=== PATIENT | female | born 1980 | race Caucasian/White ===

== ENCOUNTER 2017-03-31 12:29 | Emergency (ER) | payer SELFPAY ==
[~2017-03-31] VITALS: Ht 162.6 cm; Wt 100.9 kg
[2017-03-31] MEDS ORDERED: KETOROLAC 60 MG/2 ML VIAL (J1885) IM ONE (14:15)
--- NOTE | 2017-03-31 15:14 | REP ---
Clinical: Pain and swelling . Technique: Feldman scale and color Doppler evaluation using linear high frequency transducer. Findings: Ultrasound examination of the left upper extremity deep venous structures including the jugular, subclavian, axillary, brachial, basilic, and cephalic veins demonstrates normal compressibility flow and wave patterns in response to respiration and augmentation. There is no evidence for deep venous thrombosis. Site of maximal pain in the proximal forearm, a complex subcutaneous collection measuring roughly 6 x 3 x 5 mm may represent small hematoma. Impression: 1. No evidence for deep venous thrombosis. 2. Small complex collection in the subcutaneous tissues in the proximal forearm may represent small hematoma and should be correlated with mechanism of injury. Signed by Elton Silverio MD 03/31/2017 03:06 P
[2017-03-31] MEDS ORDERED: NAPR500T PO (15:32)
[2017-03-31] MEDS ORDERED: CLEO300C2 PO (15:32)
[2017-03-31 15:38] VITALS: BP 128/69
[2017-08-04] MEDS ORDERED: IBUP-1114 PO (19:31)
[2017-08-04] MEDS ORDERED: LIDO1SOL7 MT (20:32)
== END 2017-03-31 15:52 | disposition home or self-care (01) ==
LOC: M ED 12:29
DX: S49.92XA Unspecified injury of left shoulder and upper arm, initial encounter (principal); X58.XXXA Exposure to other specified factors, initial encounter; Y92.89 Other specified places as the place of occurrence of the external cause; Y93.89 Activity, other specified; Y99.8 Other external cause status

== ENCOUNTER 2017-07-27 20:49 | Emergency (ER) | payer SELFPAY ==
[~2017-07-27] VITALS: Ht 162.6 cm; Wt 98.2 kg
[2017-07-27 20:49] VITALS: BP 128/81
[~2017-07-27 20:49] MED LIST: CLEO300C2 PO; NAPR500T PO
[2017-07-27] MEDS ORDERED: DIFL200T PO (21:33)
[2017-07-27] MEDS ORDERED: FLUCONAZOLE 100 MG TAB PO ONE (21:45)
[2017-08-04] MEDS ORDERED: IBUP-1114 PO (19:31)
[2017-08-04] MEDS ORDERED: LIDO1SOL7 MT (20:32)
== END 2017-07-27 21:42 | disposition home or self-care (01) ==
LOC: M ED 20:49
DX: L72.9 Follicular cyst of the skin and subcutaneous tissue, unspecified (principal); B37.3 Candidiasis of vulva and vagina; J30.89 Other allergic rhinitis

== ENCOUNTER 2017-11-27 21:46 | Emergency (ER) | payer SELFPAY ==
[2017-11-27 22:12] LABS: AMORPHOUS SEDIMENT RFX MODERATE (NEGATIVE); KETONE, URINE AUTO RFX NEGATIVE (NEGATIVE); LEUKOCYTE ESTERASE UR AUTO RFX NEGATIVE (NEGATIVE); NITRITE, URINE AUTO RFX NEGATIVE (NEGATIVE); RBC, URINE AUTO RFX 2 /HPF (0-3); SPECIFIC GRAVITY UR AUTO RFX 1.017 (1.002-1.035); SQUAM EPITHELIAL CELL UR AURFX 0 /HPF (0-6); WBC, URINE AUTO RFX 1 /HPF (0-3)
[2017-11-27 22:38] LABS: CONTROL LINE UCG INT CTR LINE PRESENT; URINE PREG TEST NEGATIVE (NEGATIVE)
[2017-11-27] MEDS: ACETAMINOPHEN 325 MG TAB PO (23:31)
[2017-11-27] MEDS: ONDANSETRON 4 MG ORAL DISINTEGRATING TAB (S0181) PO (23:31)
[2017-11-28 00:25] LABS: INFLUENZA A AMPLIFICATION NEGATIVE (NEGATIVE); INFLUENZA B AMPLIFICATION POSITIVE (NEGATIVE)
== END 2017-11-28 00:42 | disposition home or self-care (01) ==
LOC: M ED 11-28 00:42
DX: J10.1 Influenza due to other identified influenza virus with other respiratory manifestations (principal); J30.2 Other seasonal allergic rhinitis; Z87.442 Personal history of urinary calculi
CPT/HCPCS: 84703

== ENCOUNTER 2018-05-18 21:23 | Emergency (ER) | payer OTHER, SELFPAY | END 2018-05-18 21:38 | disposition left against medical advice (07) | LOC: M ED 21:23 | DX: J00 Acute nasopharyngitis [common cold] (principal); Z53.21 Procedure and treatment not carried out due to patient leaving prior to being seen by health care provider ==

== ENCOUNTER 2018-07-16 18:01 | Emergency (ER) | payer OTHER | END 2018-07-16 21:14 | disposition left against medical advice (07) | LOC: M ED 18:01 | DX: Z53.29 Procedure and treatment not carried out because of patient's decision for other reasons (principal) ==

== ENCOUNTER 2018-09-23 12:46 | Emergency (ER) | payer OTHER ==
[~2018-09-23] VITALS: Ht 162.6 cm; Wt 95.9 kg
[~2018-09-23 12:46] MED LIST changes: +DIFL200T PO; +IBUP-1114 PO; +LIDO1SOL7 MT; +NAPR-49 PO; -NAPR500T PO
[2018-09-23 12:47] VITALS: BP 122/78
== END 2018-09-23 14:00 | disposition home or self-care (01) ==
LOC: M ED 12:46
DX: J32.9 Chronic sinusitis, unspecified (principal)

== ENCOUNTER 2018-09-28 13:32 | Emergency (ER) | payer OTHER ==
[~2018-09-28] VITALS: Ht 162.6 cm; Wt 95.9 kg
[~2018-09-28 13:32] MED LIST changes: -NAPR-49 PO; +NAPR-50 PO
[2018-09-28] MEDS ORDERED: NS 1,000 ML IV SCH (14:01)
[2018-09-28] MEDS ORDERED: IPRATROPIUM 0.5MG/ALBUTEROL 2.5MG INH SOL UD 3ML (DUONEB)(J7620) NEB ONE (14:15)
[2018-09-28] MEDS ORDERED: ASPIRIN 81 MG CHEW TABLET PO ONE (14:15)
[2018-09-28 14:31] LABS: VENOUS BASE EXCESS 0.5 (-2.0-2.0); VENOUS HCO3 26.9 MEQ/L (23.0-27.0); VENOUS O2 SATURATION 65.8 % (60.0-80.0); VENOUS PARTIAL PRESSURE CO2 51.2 mmHg (38.0-50.0); VENOUS PARTIAL PRESSURE O2 37.1 mmHg (30.0-50.0); VENOUS PH 7.338 UNITS (7.330-7.430); VENOUS STANDARD HCO3 24.3 MEQ/L; VENOUS TOTAL CO2 28.5 MEQ/L (24.0-28.0)
[2018-09-28 14:38] LABS: BASO % 0.5 % (0.0-1.0); EOS # 0.1 10^3/uL (0.0-0.50); EOS % 2.9 % (0.0-3.0); HEMATOCRIT 34.6 % (36.0-47.0); HEMOGLOBIN 10.5 g/dl (12.0-15.5); LYMPH # 0.9 10^3/uL (1.5-4.5); LYMPH % 22.2 % (24.0-44.0); MEAN CORPUSCULAR HEMOGLOBIN 24.1 pg (27.0-33.0); MEAN CORPUSCULAR HGB CONC 30.3 g/dl (32.0-36.5); MEAN CORPUSCULAR VOLUME 79.5 fl (80.0-96.0); MONO # 0.5 10^3/uL (0.0-0.8); MONO % 11.2 % (0.0-5.0); NEUTROPHILS # 2.6 10^3/uL (1.8-7.7); PLATELET COUNT, AUTOMATED 244 10^3/uL (150-450); RED BLOOD COUNT 4.35 10^6/uL (4.00-5.40); WHITE BLOOD COUNT 4.1 10^3/uL (4.0-10.0)
[2018-09-28 14:39] LABS: INR 0.98; PROTHROMBIN TIME 13.1 SECONDS (12.1-14.4)
--- NOTE | 2018-09-28 14:55 | REP ---
CHEST X-RAY: TWO VIEWS. HISTORY: Dyspnea and cough. COMPARISON STUDY: No comparison. FINDINGS: There is a small opacity in the right upper perihilar region consistent with infiltrate. Lung alonso are otherwise clear. Pleural angles are sharp. Heart size is normal. Pulmonary vasculature is not increased. IMPRESSION: Small infiltrate, right upper lobe consistent with pneumonia. Otherwise negative chest x-ray. Electronically Signed by Bryan Pizano MD 09/28/2018 04:17 P
[2018-09-28 15:00] LABS: BLOOD UREA NITROGEN 13 MG/DL (7-18); CALCIUM LEVEL 8.6 MG/DL (8.5-10.1); CARBON DIOXIDE LEVEL 27 MEQ/L (21-32); CHLORIDE LEVEL 107 MEQ/L (98-107); CK-MB VALUE MASS < 1.0 NG/ML (<3.6); CPK CREATINE PHOSPHOKINASE 43 U/L (26-192); CREATININE FOR GFR 0.64 MG/DL (0.55-1.30); GLOMERULAR FILTRATION RATE > 60.0 (>60); GLUCOSE, FASTING 85 MG/DL (70-100); MB/CK RELATIVE INDEX 2.33 (< OR =4); POTASSIUM SERUM 3.7 MEQ/L (3.5-5.1); SODIUM LEVEL 140 MEQ/L (136-145); TROPONIN I < 0.02 NG/ML (< 0.10)
[2018-09-28] MEDS ORDERED: PROAAER10 INH (15:40)
[2018-09-28] MEDS ORDERED: DIFL150T PO (15:40)
[2018-09-28] MEDS ORDERED: AVEL1TAB3 PO (15:40)
[2018-09-28 16:30] VITALS: BP 106/66
[2018-09-28 16:39] LABS: INFLUENZA A AMPLIFICATION POSITIVE (NEGATIVE); INFLUENZA B AMPLIFICATION NEGATIVE (NEGATIVE)
--- NOTE | 2018-09-28 18:40 | ECGEPIP ---
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
== END 2018-09-28 16:32 | disposition home or self-care (01) ==
LOC: M ED 13:32
DX: J18.9 Pneumonia, unspecified organism (principal)

== ENCOUNTER 2018-12-03 12:08 | Emergency (ER) | payer OTHER ==
[~2018-12-03] VITALS: Ht 162.6 cm; Wt 99.1 kg
[~2018-12-03 12:08] MED LIST changes: +AVEL1TAB3 PO; +DIFL150T PO; +PROAAER10 INH
--- NOTE | 2018-12-03 12:40 | REP ---
Left elbow series: Four views. History: Injury in a fall. Findings: Four views of the left elbow demonstrate normal bones, joints and soft tissues. No fracture or subluxation is seen. No evidence of joint effusion. Impression: Negative radiographs of the left elbow. Electronically Signed by Bryan Pizano MD 12/03/2018 12:32 P
[2018-12-03 13:40] VITALS: BP 130/76
== END 2018-12-03 13:43 | disposition home or self-care (01) ==
LOC: M ED 12:08
DX: S50.02XA Contusion of left elbow, initial encounter (principal); W19.XXXA Unspecified fall, initial encounter; Y92.89 Other specified places as the place of occurrence of the external cause; F32.9 Major depressive disorder, single episode, unspecified; M54.9 Dorsalgia, unspecified; J30.1 Allergic rhinitis due to pollen

== ENCOUNTER 2019-01-30 19:36 | Emergency (ER) | payer OTHER ==
[~2019-01-30] VITALS: Ht 162.6 cm; Wt 100.7 kg
[~2019-01-30 19:36] MED LIST changes: -LIDO1SOL7 MT; +LIDO1SOL8 MT; -NAPR-50 PO; +NAPR-837 PO
[2019-01-30 20:38] LABS: BASO # 0.1 10^3/uL (0.0-0.2); BASO % 0.6 % (0.0-1.0); EOS # 0.3 10^3/uL (0.0-0.50); EOS % 3.3 % (0.0-3.0); HEMATOCRIT 36.8 % (36.0-47.0); HEMOGLOBIN 11.2 g/dl (12.0-15.5); LYMPH # 2.4 10^3/uL (1.5-4.5); MEAN CORPUSCULAR HEMOGLOBIN 24.6 pg (27.0-33.0); MEAN CORPUSCULAR HGB CONC 30.4 g/dl (32.0-36.5); MEAN CORPUSCULAR VOLUME 80.7 fl (80.0-96.0); MONO # 0.7 10^3/uL (0.0-0.8); MONO % 8.3 % (0.0-5.0); NEUTROPHILS # 4.5 10^3/uL (1.8-7.7); NEUTROPHILS % 57.5 % (36.0-66.0); PLATELET COUNT, AUTOMATED 327 10^3/uL (150-450); RED BLOOD COUNT 4.56 10^6/uL (4.00-5.40); WHITE BLOOD COUNT 7.8 10^3/uL (4.0-10.0)
[2019-01-30 21:01] LABS: HCG, SERUM QUALITATIVE NEGATIVE (NEGATIVE)
[2019-01-30 21:08] LABS: AMPHETAMINES LEVEL URINE NEGATIVE (NEGATIVE); BARBITURATES URINE NEGATIVE (NEGATIVE); BENZODIAZEPINES URINE NEGATIVE (NEGATIVE); CANNABINOIDS URINE NEGATIVE (NEGATIVE); COCAINE METABOLITE URINE NEGATIVE (NEGATIVE); METHADONE URINE NEGATIVE (NEGATIVE); OPIATES URINE NEGATIVE (NEGATIVE); PHENCYCLIDINE URINE NEGATIVE (NEGATIVE)
[2019-01-30 21:09] LABS: BLOOD UREA NITROGEN 14 MG/DL (7-18); CALCIUM LEVEL 8.7 MG/DL (8.5-10.1); CARBON DIOXIDE LEVEL 27 MEQ/L (21-32); CHLORIDE LEVEL 110 MEQ/L (98-107); CK-MB VALUE MASS < 1.0 NG/ML (<3.6); CPK CREATINE PHOSPHOKINASE 53 U/L (26-192); CREATININE FOR GFR 0.78 MG/DL (0.55-1.30); ETHYL ALCOHOL (ETHANOL) < 0.003 % (0.000-0.010); FREE T4 0.87 NG/DL (0.76-1.46); GLOMERULAR FILTRATION RATE > 60.0 (>58); GLUCOSE, FASTING 85 MG/DL (70-100); MAGNESIUM LEVEL 2.2 MG/DL (1.8-2.4); MB/CK RELATIVE INDEX 1.89 (< OR =4); SODIUM LEVEL 141 MEQ/L (136-145); TROPONIN I < 0.02 NG/ML (< 0.10)
--- NOTE | 2019-01-30 21:16 | REPVR ---
EXAM: CT Head Without Contrast EXAM DATE/TIME: 01/30/2019 9:02 PM CLINICAL HISTORY: 38 years old, female; Pain; Headache; Additional info: Syncope/headache TECHNIQUE: Imaging protocol: Axial computed tomography images of the head/brain without contrast. Radiation optimization: All CT scans at this facility use at least one of these dose optimization techniques: automated exposure control; mA and/or kV adjustment per patient size (includes targeted exams where dose is matched to clinical indication); or iterative reconstruction. COMPARISON: No relevant prior studies available. FINDINGS: Brain: There is no evidence of intracranial bleed. Ventricles: Normal appearing ventricles. Bones/joints: There is no evidence of fracture. Sinuses: Clear paranasal sinuses. Mastoid air cells: Clear mastoid air cells. Soft tissues: Unremarkable. IMPRESSION: 1. No evidence of bleed. 2. No evidence of mass effect. Electronically signed by: Oniel Abreu On 01/30/2019 21:15:45 PM
--- NOTE | 2019-01-30 21:51 | ECGEPIP ---
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
[2019-01-30] MEDS ORDERED: DIFL150T PO (22:49)
[2019-01-30] MEDS ORDERED: AUGM875T28 PO (22:49)
[2019-01-30] MEDS ORDERED: PSEU30TA85 PO (22:49)
[2019-01-30] MEDS ORDERED: FLON1SPR NARES (22:50)
[2019-01-30] MEDS ORDERED: MECL-68 PO (22:50)
[2019-01-30 23:09] VITALS: BP 120/83
== END 2019-01-30 23:10 | disposition home or self-care (01) ==
LOC: M ED 19:36
DX: R42 Dizziness and giddiness (principal); J30.2 Other seasonal allergic rhinitis; D64.9 Anemia, unspecified; J01.90 Acute sinusitis, unspecified; B37.3 Candidiasis of vulva and vagina
CPT/HCPCS: 70450; 80048; 80307; 82550; 82553; 83605; 83735; 84439; 84443; 84703; 85025; 93005; 93041; 99284; G0480

== ENCOUNTER → 2019-06-12 | Outpatient (REF) | payer OTHER ==
[~2019-06-12] MED LIST changes: +AUGM875T28 PO; +FLON1SPR NARES; +MECL-68 PO; +PSEU30TA85 PO
[2019-06-12 17:51] LABS: ALBUMIN 3.8 GM/DL (3.2-5.2); ALT/SGPT 20 U/L (12-78); BILIRUBIN,TOTAL 0.7 MG/DL (0.2-1.0); BLOOD UREA NITROGEN 11 MG/DL (7-18); CARBON DIOXIDE LEVEL 26 MEQ/L (21-32); CHLORIDE LEVEL 105 MEQ/L (98-107); CHOLESTEROL LEVEL 166 MG/DL (<200); CHOLESTEROL RISK RATIO 3.254 (<5); CREATININE FOR GFR 0.78 MG/DL (0.55-1.30); FREE T4 0.82 NG/DL (0.76-1.46); GLOMERULAR FILTRATION RATE > 60.0 (>58); GLUCOSE, FASTING 92 MG/DL (70-100); HDL CHOLESTEROL 51 MG/DL (>40); LDL CHOLESTEROL 104 MG/DL (<100); NON-HDL-C 115 MG/DL; POTASSIUM SERUM 4.3 MEQ/L (3.5-5.1); SODIUM LEVEL 140 MEQ/L (136-145); TOTAL PROTEIN 7.4 GM/DL (6.4-8.2); TRIGLYCERIDES LEVEL 57 MG/DL (<150)
[2019-06-12 17:52] LABS: BASO # 0.1 10^3/uL (0.0-0.2); BASO % 0.9 % (0.0-1.0); EOS # 0.2 10^3/uL (0.0-0.5); EOS % 3.1 % (0.0-3.0); HEMATOCRIT 37.4 % (36.0-47.0); HEMOGLOBIN 11.1 g/dl (12.0-15.5); LYMPH # 1.9 10^3/uL (1.5-5.0); LYMPH % 24.7 % (24.0-44.0); MEAN CORPUSCULAR HEMOGLOBIN 24.4 pg (27.0-33.0); MEAN CORPUSCULAR HGB CONC 29.7 g/dl (32.0-36.5); MEAN CORPUSCULAR VOLUME 82.2 fl (80.0-96.0); MONO # 0.4 10^3/uL (0.0-0.8); MONO % 5.5 % (0.0-5.0); NEUTROPHILS # 5.2 10^3/uL (1.5-8.5); NEUTROPHILS % 65.5 % (36.0-66.0); PLATELET COUNT, AUTOMATED 355 10^3/uL (150-450); RED BLOOD COUNT 4.55 10^6/uL (4.00-5.40); WHITE BLOOD COUNT 7.9 10^3/uL (4.0-10.0)
[2019-06-12 18:23] LABS: HEMOGLOBIN A1c 5.5 %
[2019-06-12 18:33] LABS: APPEARANCE, URINE HAZY (CLEAR); BACTERIA, URINE AUTO NEGATIVE (NEGATIVE); BILIRUBIN, URINE AUTO NEGATIVE (NEGATIVE); BLOOD, URINE BLOOD 1+ (NEGATIVE); COLOR, URINE YELLOW (YELLOW); GLUCOSE, URINE (UA) AUTO NEGATIVE (NEGATIVE); KETONE, URINE AUTO NEGATIVE (NEGATIVE); LEUKOCYTE ESTERASE, URINE AUTO NEGATIVE (NEGATIVE); NITRITE, URINE AUTO NEGATIVE (NEGATIVE); PROTEIN, URINE AUTO 1+ mg/dL (NEGATIVE); RBC, URINE AUTO 1 /HPF (0-3); SPECIFIC GRAVITY URINE AUTO 1.017 (1.002-1.035); SQUAMOUS EPITHELIAL CELL UR AU 6 /HPF (0-6); UROBILINOGEN, URINE AUTO 0.2 mg/dL (0.0-2.0); WBC, URINE AUTO 6 /HPF (0-3)
== END ==
LOC: M LAB REF 16:41
PROVIDERS: ATTEND Nurse Practitioner Family
DX: Z13.9 Encounter for screening, unspecified (principal); R42 Dizziness and giddiness; E66.9 Obesity, unspecified; R35.0 Frequency of micturition

== ENCOUNTER 2019-07-02 17:08 | Emergency (ER) | payer OTHER ==
[~2019-07-02] VITALS: Ht 162.6 cm; Wt 102.3 kg
[2019-07-02 18:05] LABS: HEMOGLOBIN 11.1 g/dl (12.0-15.5); MEAN CORPUSCULAR HEMOGLOBIN 24.7 pg (27.0-33.0); MEAN CORPUSCULAR VOLUME 82.4 fl (80.0-96.0); PLATELET COUNT, AUTOMATED 303 10^3/uL (150-450); RED BLOOD COUNT 4.49 10^6/uL (4.00-5.40); WHITE BLOOD COUNT 8.6 10^3/uL (4.0-10.0)
[2019-07-02] MEDS ORDERED: METOCLOPRAMIDE 10 MG TAB PO ONE (18:45)
[2019-07-02] MEDS ORDERED: NAPROXEN 250 MG TAB PO ONE (18:45)
[2019-07-02 19:53] LABS: INFLUENZA A AMPLIFICATION NEGATIVE (NEGATIVE); INFLUENZA B AMPLIFICATION NEGATIVE (NEGATIVE)
[2019-07-02 19:59] VITALS: BP 129/75
== END 2019-07-02 20:01 | disposition home or self-care (01) ==
LOC: M ED 17:08
DX: R51 Headache (principal); R11.0 Nausea

== ENCOUNTER → 2019-08-07 | Outpatient (REF) | payer OTHER ==
[2019-08-09 14:17] LABS: HPV HYBRID CAPTURE II Negative (Negative)
== END ==
LOC: M LAB REF 17:27
PROVIDERS: ATTEND Advanced Practice Midwife
DX: Z12.4 Encounter for screening for malignant neoplasm of cervix (principal)

== ENCOUNTER → 2019-08-26 | Outpatient (CLI) | payer OTHER ==
--- NOTE | 2019-08-26 17:16 | REP ---
PELVIC ULTRASOUND: Real-time sonographic evaluation of the pelvis performed utilizing transabdominal and endovaginal technique. Bladder measures 4.8 x 6.7 x 4.4 cm. Uterus measures 11.0 x 5.7 x 6.0 cm. Endometrial thickness is 6 mm. Myometrial echotexture is heterogeneous with probably underlying fibroid changes. I suspect and anterior uterine fibroid measuring 2.8 x 2.0 x 2.1 cm. Nabothian cysts are seen in the region of the cervix measuring up to 6 mm. Right ovary appears normal in size and echotexture measuring 2.8 x 1.9 x 2.3 cm with no torsion with duplex Doppler evaluation. Left ovary could not be visualized. Otherwise no adnexal mass is seen and there is no evidence of free fluid. IMPRESSION: Left ovary could not be visualized. No definite adnexal mass or free fluid. Probable fibroid changes of the uterus. Electronically Signed by Elliot Feldman MD 08/27/2019 09:53 A
== END ==
LOC: M RAD 15:10
PROVIDERS: ATTEND Advanced Practice Midwife
DX: R10.2 Pelvic and perineal pain (principal)

== ENCOUNTER → 2019-12-23 | Outpatient (REF) | payer OTHER ==
[~2019-12-23] MED LIST changes: +IBUP200C27 PO; -LIDO1SOL8 MT; +LIDO2SOL17 MT; -MECL-68 PO; +MECL1TAB31 PO
== END ==
LOC: M SFHCWAGY 17:09
PROVIDERS: ATTEND Obstetrics & Gynecology
DX: N93.9 Abnormal uterine and vaginal bleeding, unspecified (principal)

== ENCOUNTER → 2020-02-07 | Outpatient (CLI) | payer OTHER ==
[~2020-02-07] MED LIST changes: +COLA100C5 PO; +IBUP80TA PO; +MECL12.589 PO; +MULTCAP PO; +OXYC1TAB23 PO; +ZOFR4TAB16 PO
== END ==
LOC: M LABSMTC 10:23
PROVIDERS: ATTEND Anesthesiology
DX: Z01.818 Encounter for other preprocedural examination (principal); Z11.59 Encounter for screening for other viral diseases

== ENCOUNTER 2020-02-10 11:25 | Day surgery (SDC) | payer OTHER ==
[~2020-02-10] VITALS: Ht 162.6 cm; Wt 108.0 kg
[~2020-02-10 11:25] MED LIST changes: -COLA100C5 PO; -IBUP80TA PO; +KETOROLAC 60 MG/2 ML VIAL As Ordered ONE; +LIDOCAINE 1% MDV 20ML VIAL SQ PRN; +LIDOCAINE 2% 100MG/5ML SDV (FOR ANES.) As Ordered ONE; +LR 1,000 ML IV ONE; +MIDAZOLAM INJ 2MG/2ML VIAL (J2250 PER 1MG) As Ordered ONE; -MULTCAP PO; +ONDANSETRON 4MG/2ML VIAL As Ordered ONE; -OXYC1TAB23 PO; +ROCURONIUM BROMIDE 50 MG/5 ML VIAL As Ordered ONE; +SUGAMMADEX SODIUM 500 MG/5 ML VIAL (BRIDION) As Ordered ONE; -ZOFR4TAB16 PO; +ceFAZolin SOD 2 GM in IV 1 EA IV ONE; +dexameTHASONE 4 MG/ML 1ML VIAL (J1100 PER 1MG) As Ordered ONE; +fentaNYL 250 MCG/5 ML INJECTION (J3010) As Ordered ONE; +propofoL 200 MG/20 ML VIAL As Ordered ONE
[2020-02-10] MEDS ORDERED: MULTCAP PO (11:47)
[2020-02-10 11:51] LABS: HEMATOCRIT 36.3 % (36.0-47.0); MEAN CORPUSCULAR HEMOGLOBIN 24.2 pg (27.0-33.0); MEAN CORPUSCULAR HGB CONC 30.3 g/dl (32.0-36.5); PLATELET COUNT, AUTOMATED 354 10^3/uL (150-450); RED BLOOD COUNT 4.54 10^6/uL (4.00-5.40); WHITE BLOOD COUNT 7.4 10^3/uL (4.0-10.0)
[2020-02-10] MEDS ORDERED: BUPIVACAINE HCL 0.25% 30ML VIAL As Ordered ONE (11:58)
[2020-02-10] MEDS ORDERED: METHYLENE BLUE 0.5% (5MG/ML) 10 ML AMP (PROVAYBLUE)(Q9968 PER 1MG) As Ordered ONE (11:59)
[2020-02-10 12:18] LABS: HCG, SERUM QUALITATIVE NEGATIVE (NEGATIVE)
[2020-02-10] MEDS ORDERED: dexameTHASONE 4 MG/ML 1ML VIAL (J1100 PER 1MG) As Ordered ONE (12:26)
[2020-02-10] MEDS ORDERED: ePHEDrine SULFATE 25 MG/5 ML(5MG/ML) SYRINGE As Ordered ONE (12:36)
[2020-02-10] MEDS ORDERED: PHENYLephrine HCL 500 MCG/5 ML (100MCG/ML) SYRINGE (J2370) As Ordered ONE (12:36)
[2020-02-10] MEDS ORDERED: ACETAMINOPHEN 1000MG 100ML IV BTL (OFIRMEV) (J0131 PER 10MG) As Ordered ONE (12:42)
[2020-02-10] MEDS ORDERED: ROCURONIUM BROMIDE 50 MG/5 ML VIAL As Ordered ONE (13:34)
[2020-02-10] MEDS ORDERED: OXYC1TAB23 PO (14:19)
[2020-02-10] MEDS ORDERED: COLA100C5 PO (14:21)
[2020-02-10] MEDS ORDERED: IBUP80TA PO (14:21)
[2020-02-10] MEDS ORDERED: ZOFR4TAB16 PO (14:21)
[2020-02-10] MEDS: fentaNYL 100 MCG/2 ML INJECTION (J3010) IV PRN ×4 (14:30→14:47)
[2020-02-10] MEDS ORDERED: LR 1,000 ML IV SCH ×2 (14:30→14:45)
[2020-02-10] MEDS ORDERED: ONDANSETRON 4MG/2ML VIAL IV PRN ×2 (14:30→14:45)
[2020-02-10] MEDS: oxyCODONE 5MG TAB PO PRN ×2 (14:30→15:49)
[2020-02-10] MEDS ORDERED: MORPHINE 4 MG/ML 1ML VIAL/SYRINGE (J2270) IV PRN (14:45)
[2020-02-10] MEDS ORDERED: KETOROLAC 30 MG/ML 1ML VIAL IV PRN (14:45)
[2020-02-10] MEDS ORDERED: diphenhydrAMINE 50MG/ML VIAL (J1200) IV PRN (14:45)
[2020-02-10] MEDS ORDERED: PERCOCET 5MG/325MG TAB PO PRN ×2 (15:00)
[2020-02-10] MEDS ORDERED: oxyCODONE 5MG TAB As Ordered ONE (15:32)
[2020-02-10 16:10] VITALS: BP 110/71
== END 2020-02-10 16:40 | disposition home or self-care (01) ==
LOC: M SDC 11:25
PROVIDERS: ATTEND Obstetrics & Gynecology
DX: N92.0 Excessive and frequent menstruation with regular cycle (principal); D25.9 Leiomyoma of uterus, unspecified; N72 Inflammatory disease of cervix uteri; G43.909 Migraine, unspecified, not intractable, without status migrainosus; F32.9 Major depressive disorder, single episode, unspecified; Z79.899 Other long term (current) drug therapy
CPT/HCPCS: 36415; 58571; 84703; 85027; 86850; 86900; 86901; 88307; J0131; J0690; J1100; J1885; J2250; J2370; J2405; J3010; Q9968

== ENCOUNTER → 2020-09-13 | Outpatient (REF) | payer OTHER ==
[~2020-09-13] MED LIST changes: +COLA100C5 PO; +IBUP80TA PO; -KETOROLAC 60 MG/2 ML VIAL As Ordered ONE; -LIDOCAINE 1% MDV 20ML VIAL SQ PRN; -LIDOCAINE 2% 100MG/5ML SDV (FOR ANES.) As Ordered ONE; -LR 1,000 ML IV ONE; -MECL12.589 PO; +MECL12.590 PO; -MIDAZOLAM INJ 2MG/2ML VIAL (J2250 PER 1MG) As Ordered ONE; +MULTCAP PO; -ONDANSETRON 4MG/2ML VIAL As Ordered ONE; +OXYC1TAB23 PO; -ROCURONIUM BROMIDE 50 MG/5 ML VIAL As Ordered ONE; -SUGAMMADEX SODIUM 500 MG/5 ML VIAL (BRIDION) As Ordered ONE; +ZOFR4TAB16 PO; -ceFAZolin SOD 2 GM in IV 1 EA IV ONE; -dexameTHASONE 4 MG/ML 1ML VIAL (J1100 PER 1MG) As Ordered ONE; -fentaNYL 250 MCG/5 ML INJECTION (J3010) As Ordered ONE; -propofoL 200 MG/20 ML VIAL As Ordered ONE
== END ==
LOC: M WUC 09:24
PROVIDERS: ATTEND Physician Assistant
DX: J06.9 Acute upper respiratory infection, unspecified (principal)

== ENCOUNTER → 2020-10-27 | Outpatient (CLI) | payer OTHER ==
--- NOTE | 2020-10-28 07:23 | REP ---
INDICATION: PAIN IN LEFT SHOULDER COMPARISON: None. TECHNIQUE: Internal rotation, external rotation, and Y view. FINDINGS: No acute fracture or dislocation. The acromioclavicular and glenohumeral joints are intact. No periarticular calcifications or significant degenerative changes are appreciated. Sub acromial space is normal. Surrounding soft tissues are unremarkable. IMPRESSION: Normal age-appropriate left shoulder radiographs. <Electronically signed by Elton Silverio > 10/28/20 0719
== END ==
LOC: M ADAMS 11:43
PROVIDERS: ATTEND Nurse Practitioner Family
DX: M25.512 Pain in left shoulder (principal)

== ENCOUNTER 2021-06-18 14:44 | Emergency (ER) | payer OTHER ==
[~2021-06-18] VITALS: Ht 162.6 cm; Wt 108.1 kg
[~2021-06-18 14:44] MED LIST changes: +MECL-136 PO; -MECL12.590 PO; -PSEU30TA85 PO; +PSEU30TA86 PO
--- NOTE | 2021-06-18 16:10 | REP ---
INDICATION: cough, SOB, + covid. COMPARISON: 09/28/2018. TECHNIQUE: Single portable AP view of the chest was performed. FINDINGS: Mild peripheral patchy infiltrate is seen on the right. There is probably some minimal infiltrate peripherally in the left mid lung zone. The heart and mediastinum are unremarkable and unchanged. IMPRESSION: Mild peripheral patchy infiltrate in the right lung with probable minimal lateral left midlung infiltrate is well. <Electronically signed by Elliot Feldman > 06/18/21 [id number]
[2021-06-18] MEDS: ALBUTEROL 90 MCG/ACT 8GM HFA INHALER INH SCH ×3 (18:09→18:56)
[2021-06-18 19:29] LABS: EOS % 0.4 % (0.0-3.0); HEMATOCRIT 41.1 % (36.0-47.0); HEMOGLOBIN 13.4 g/dl (12.0-15.5); LYMPH # 0.7 10^3/uL (1.5-5.0); LYMPH % 27.8 % (24.0-44.0); MEAN CORPUSCULAR HEMOGLOBIN 30.1 pg (27.0-33.0); MEAN CORPUSCULAR HGB CONC 32.6 g/dl (32.0-36.5); MEAN CORPUSCULAR VOLUME 92.4 fl (80.0-96.0); MONO # 0.3 10^3/uL (0.0-0.8); MONO % 9.9 % (2.0-8.0); NEUTROPHILS # 1.5 10^3/uL (1.5-8.5); NEUTROPHILS % 61.1 % (36.0-66.0); PLATELET COUNT, AUTOMATED 167 10^3/uL (150-450); RED BLOOD COUNT 4.45 10^6/uL (4.00-5.40); WHITE BLOOD COUNT 2.5 10^3/uL (4.0-10.0)
[2021-06-18 19:38] LABS: ALBUMIN 3.1 GM/DL (3.2-5.2); ALT/SGPT 28 U/L (12-78); BILIRUBIN,TOTAL 0.6 MG/DL (0.2-1.0); BLOOD UREA NITROGEN 12 MG/DL (7-18); C REACTIVE PROTEIN QUANTITATIV 2.94 MG/DL (0.00-0.30); CALCIUM LEVEL 8.3 MG/DL (8.5-10.1); CARBON DIOXIDE LEVEL 27 MEQ/L (21-32); CHLORIDE LEVEL 107 MEQ/L (98-107); CK-MB VALUE MASS < 1.0 NG/ML (<3.6); CPK CREATINE PHOSPHOKINASE 85 U/L (26-192); CREATININE FOR GFR 0.75 MG/DL (0.55-1.30); FERRITIN 116 NG/ML (8-252); GLOMERULAR FILTRATION RATE > 60.0 (>58); GLUCOSE, FASTING 81 MG/DL (70-100); MB/CK RELATIVE INDEX 1.18 (< OR =4); POTASSIUM SERUM 3.6 MEQ/L (3.5-5.1); SODIUM LEVEL 139 MEQ/L (136-145); TOTAL PROTEIN 6.5 GM/DL (6.4-8.2); TROPONIN I < 0.02 NG/ML (< 0.10)
[2021-06-18 20:04] LABS: ERYTHROCYTE SEDIMENTATION RATE 32 mm/hr (0-20)
[2021-06-18] MEDS ORDERED: BENZONATATE 100MG CAPSULE PO ONE (20:15)
[2021-06-18] MEDS ORDERED: AMOX500T PO (21:39)
[2021-06-18] MEDS ORDERED: VENTAER INH (21:39)
[2021-06-18] MEDS ORDERED: TESS100C PO (21:39)
[2021-06-18 22:31] VITALS: BP 128/82
--- NOTE | 2021-06-19 05:17 | ECGEPIP ---
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
== END 2021-06-18 22:34 | disposition home or self-care (01) ==
LOC: M ED 14:44
DX: J18.1 Lobar pneumonia, unspecified organism (principal); U07.1 COVID-19; F33.9 Major depressive disorder, recurrent, unspecified; Z79.899 Other long term (current) drug therapy

== ENCOUNTER 2021-06-22 12:50 | Emergency (ER) | payer OTHER ==
[~2021-06-22] VITALS: Ht 162.6 cm; Wt 106.4 kg
[~2021-06-22 12:50] MED LIST changes: +AMOX500T PO; +TESS100C PO; +VENTAER INH
[2021-06-22 13:32] LABS: BASO % 0.2 % (0.0-1.0); HEMATOCRIT 42.2 % (36.0-47.0); HEMOGLOBIN 13.7 g/dl (12.0-15.5); LYMPH # 0.5 10^3/uL (1.5-5.0); LYMPH % 11.7 % (24.0-44.0); MEAN CORPUSCULAR HEMOGLOBIN 30.2 pg (27.0-33.0); MEAN CORPUSCULAR HGB CONC 32.5 g/dl (32.0-36.5); MONO # 0.3 10^3/uL (0.0-0.8); MONO % 6.9 % (2.0-8.0); NEUTROPHILS # 3.7 10^3/uL (1.5-8.5); NEUTROPHILS % 80.8 % (36.0-66.0); PLATELET COUNT, AUTOMATED 200 10^3/uL (150-450); RED BLOOD COUNT 4.54 10^6/uL (4.00-5.40); WHITE BLOOD COUNT 4.6 10^3/uL (4.0-10.0)
--- NOTE | 2021-06-22 13:55 | REP ---
INDICATION: SOB. COMPARISON: Comparison chest x-ray June 18, 2021. TECHNIQUE: Portable sitting AP chest radiograph. FINDINGS: EKG electrodes are seen. The lungs are exposed at a somewhat lesser level of inspiration. Patchy bilateral perihilar infiltrate pattern is again noted however this is more pronounced today than on the prior study. Findings consistent with progressive pneumonitis. Pleural angles are sharp. Heart is not felt to be enlarged. IMPRESSION: Findings consistent with progressive pneumonia with increased bilateral patchy perihilar infiltrates. <Electronically signed by Charles Pizano > 06/22/21 [id number]
[2021-06-22 14:00] LABS: BILIRUBIN,DIRECT 0.2 MG/DL (0.0-0.2); BILIRUBIN,TOTAL 0.7 MG/DL (0.2-1.0); TOTAL PROTEIN 6.7 GM/DL (6.4-8.2)
[2021-06-22] MEDS ORDERED: NS 500 ML IV ONE (15:35)
[2021-06-22 15:46] LABS: INR 0.97; PARTIAL THROMBOPLASTIN TIME 38.2 SECONDS (25.9-37.0); PROTHROMBIN TIME 13.3 SECONDS (12.7-14.5)
[2021-06-22 15:49] LABS: D-DIMER QUANT 686.72 ng/ml (<500)
[2021-06-22 17:16] VITALS: BP 105/66
--- NOTE | 2021-06-23 12:16 | ED PDOC ---
Post-Departure Follow-Up cxr faxed to jose leonard for fu Huseyin Barkley MD Jun 23, 2021 12:16
== END 2021-06-22 17:25 | disposition home or self-care (01) ==
LOC: M ED 12:50
DX: J16.8 Pneumonia due to other specified infectious organisms (principal); U07.1 COVID-19; F33.9 Major depressive disorder, recurrent, unspecified; F17.210 Nicotine dependence, cigarettes, uncomplicated

== ENCOUNTER 2021-06-22 17:05 | Inpatient (IN) | payer OTHER ==
[2021-06-22] VITALS (9 sets, daily range): BP systolic 90–110; BP diastolic 59–69
[~2021-06-22] VITALS: Ht 162.6 cm; Wt 105.2 kg
[2021-06-22] MEDS: guaiFENesin ER 600 MG TAB PO SCH ×3 (09:00→21:43)
--- NOTE | 2021-06-22 15:52 | HPEPDOC ---
[facility] Medical History & Physical Date of Admission Jun 22, 2021 Date of Service: Jun 22, 2021 Attending Physician: CINDY ZAMBRANO DO History and Physical CHIEF COMPLAINT: Shortness of breath with COVID-19 diagnosis HISTORY OF PRESENT ILLNESS: Patient is a 40-year-old female who was initially diagnosed with COVID-19 on 06/14/2021. Patient initially presented to the emergency department on 06/18/2021 when she had increasing shortness of breath. Patient was offered monoclonal antibodies but declined at this time. Patient began to feel more short of breath especially with exertion today and said her pulse ox was low at home so she presented to the emergency department. In the emergency department, chest x-ray does show a mild worsening of patchy infiltrates as well as an oxygen saturation around 90 to 92%. Patient was ambulated around the room and did not drop so the decision was made to call for monoclonal antibodies. In speaking with the patient, she has been having some worsening shortness of breath over the past few days. Patient feels quite ill today. Patient is not been eating and drinking much today. Patient says that she feels very dry and her last urine was when she woke up this morning at 7 AM. Patient denies any chest pain. Patient has been coughing and says it is a dry cough but will occasionally get some clear-colored colored sputum but this is not the norm for her. Patient denies any other symptoms at this time. PAST MEDICAL HISTORY: 1. Depression. PAST SURGICAL HISTORY: 1. Hysterectomy. 2. Tubal ligation. SOCIAL HISTORY: Patient denies smoking cigarettes, drink alcohol, or doing illicit drug. Patient was at home with her and her child. 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 REVIEW OF SYSTEMS: General: Patient denies fevers HEENT: Patient reports headaches Cardiovascular: Patient denies chest pain Respiratory: Patient reports shortness of breath, cough as above GI: Patient denies abdominal pain, nausea, vomiting, diarrhea : Patient denies increased frequency or pain with urination Extremities: Patient denies swelling or pain in extremities Neurological: Patient denies numbness or tingling in legs Skin: Patient denies any new rashes or lesions. Hematologic: Patient denies any easy bruising. Lymphatic: Patient denies any lumps lumps or bumps in neck, axilla, or groin HOME MEDICATIONS: Please see below. PHYSICAL EXAMINATION: VITAL SIGNS: Temperature 98.9, pulse 110, respiratory rate 16, blood pressure 98/64, pulse oximetry 93% on room air. General: Alert and oriented female patient who was sitting up in bed when I walked in. Patient did appear mildly ill but not in any acute distress HEENT: Normocephalic, atraumatic, moist mucous membranes. Neck: No lymphadenopathy or thyromegaly Cardiac: Regular rate and rhythm, no murmurs, normal S1, normal S2 Pulm: Clear to auscultation bilaterally. No wheezes, rhonchi, rales Abd: Nondistended, nontender to palpation, normal bowel sounds Ext: No edema bilateral lower extremities Neuro: Patient was able to move all 4 extremities on command and reported equal sensation light touch in all 4 extremities. Skin: Skin of the head, neck, upper and lower extremities was examined did not show any evidence of rash or wounds. LABORATORY DATA: See below. IMAGING: Chest x-ray performed on 06/22/2021 is reported to show findings consistent with progressive pneumonia with increased bilateral patchy perihilar infiltrates. MICROBIOLOGY: Please see below. ASSESSMENT: 40-year-old female who presented to the emergency department with increased shortness of breath who was Covid positive as of 06/14/2021 and became symptomatic as of 06/16/2021 who will be admitted for monoclonal antibodies. . PLAN: 1. COVID-19. Risk and benefits of monoclonal antibodies were discussed with the patient. Patient has decided to accept that at this time. Consent form has been signed. Patient is borderline for needing admission to the hospital but at this time, she was able to maintain her oxygen saturations above 90% while exerting herself. Patient will be brought up to the Covid floor and given the monoclonal antibodies. 2. Dehydration. Patient appears to be dehydrated with low blood pressure as well as tachycardia. I did asked the ED provider to give the patient a 500 cc bolus and recheck her vitals in order to see if she needs an additional 500 cc bolus. I did encourage the patient to try to drink some water. Patient is able to have a diet order at this time which will be placed. Disposition: Patient be admitted to an outpatient bed on the Covid floor for monoclonal antibodies and will be discharged as long as her vital signs are stable an hour after the infusion is completed. Late entry: Overnight, the patient worsened and was requiring oxygen therapy. Because of this, after the monoclonal infusion was performed the patient was admitted for hypoxia due to COVID-19 pneumonia. Please see note from overnight provider for more information. Patient was admitted to the floor. Home Medications Scheduled Amoxicillin (Amoxicillin) 500 Mg Tablet, 1,000 MG PO TID Benzonatate (Tessalon Perle) 100 Mg Capsule, 1 CAP PO TID for cough Ibuprofen (Ibuprofen) 800 Mg Tablet, 1 TAB PO TID for pain Multivitamin (Multivitamins) 1 Each Capsule, 1 CAP PO DAILY Ondansetron HCl (Zofran) 4 Mg Tablet, 4 MG PO Q6H Scheduled PRN Albuterol Sulfate (Ventolin Hfa) 18 Gm Hfa.aer.ad, 2 PUFF INH Q4-6HP PRN for wheezing Meclizine HCl (Meclizine HCl) 12.5 Mg Tablet, 12.5 MG PO DAILYPRN PRN for vertigo Allergies Coded Allergies: HAY FEVER (Verified Allergy, Unknown, 02/10/20) A-FIB/CHADSVASC A-FIB History Current/History of A-Fib/PAF?: No CINDY ZAMBRANO DO Jun 22, 2021 15:52
[~2021-06-22 17:05] MED LIST changes: +ALBUTEROL 90 MCG/ACT 8GM HFA INHALER INH PRN; +ALBUTEROL SULFATE 2.5 MG/0.5 ML INH NEB SOLN INH PRN; +EPINEPHrine INJ 1 MG/ML 1ML AMP IM PRN; +NS 1,000 ML IV SCH; +NS 500 ML IV ONE; +diphenhydrAMINE 50MG/ML VIAL (J1200) IV PRN; +methylPREDNISolone 125MG 2ML VIAL IV PRN
[2021-06-22] MEDS ORDERED: CASIRIVIMAB/IMDEVIMAB 1,200 MG in NS 250 ML IV ONE (18:00)
[2021-06-22] MEDS ORDERED: NS 500 ML IV ONE (18:45)
[2021-06-22] MEDS ORDERED: ENOXAPARIN 100MG/1ML SYRINGE (J1650 PER 10MG) SC SCH (21:05)
--- NOTE | 2021-06-22 21:18 | IPNPDOC ---
Text Note Date of Service The patient was seen on 06/22/21. NOTE Pt with desat following monoclonal infusion. She reports SOB without oxygen. Desat 83% on RA at one point per staff. Pt was seen at bedside for recommendations and assessment. She is ill appearance. She requested to go to bathroom with assist and after ambulation to toilet and getting back in bed Spo2 86% on 1L NC. She improved to 91% on 2L NC. She does have notable dry coughing fits, rales and is tachycardic 115, sinus. Her BP is soft after 1L bolus with infusion- 96/82. She is agreeable due to her symptoms to stay overnight. Pt to be transferred to [facility]. Tele, continuous pulse ox. She is within 10 day window and increasing o2 demands, plan for protocol treatment remdesivir and decadron. She is full code, will be placed on lovenox prophylaxis. Procalc was not elevated. Will recheck in AM for consideration of abx. AM CXR and will give further another 1L ivf as well as encourage PO intake. Pend pt response possible d/c home with oxygen tomorrow. Pt made aware and notified her . WCTM and adjust careplan accordingly. VS,Fishbone, I+O VS, Fishbone, I+O Vital Signs Date Time Temp Pulse Resp B/P (MAP) Pulse Ox O2 Delivery O2 Flow Rate FiO2 06/22/21 20:15 106 21 105/66 (79) 90 Nasal Cannula 0.5 06/22/21 20:00 98.7 WILBUR PONCE NP Jun 22, 2021 21:18
[2021-06-22] MEDS: NS 1,000 ML IV SCH (21:37)
[2021-06-22] MEDS ORDERED: REMDESIVIR 200 MG in NS 250 ML IV ONE (23:00)
[2021-06-22] MEDS ORDERED: ONDANSETRON 4MG/2ML VIAL IV PRN (23:20)
[2021-06-22] MEDS ORDERED: ACETAMINOPHEN TAB 650MG DOSE (2X325MG) PO PRN (23:20)
[2021-06-22] MEDS: ENOXAPARIN 100MG/1ML SYRINGE (J1650 PER 10MG) SC SCH (23:38)
[2021-06-23] VITALS (10 sets, daily range): BP systolic 101–109; BP diastolic 60–70; O2SAT 90–96
[2021-06-23] MEDS ORDERED: SODIUM CHLORIDE 0.9% INJ 10 ML SYR IV ONE
[2021-06-23 03:06] LABS: APPEARANCE, URINE CLEAR (CLEAR); BACTERIA, URINE AUTO NEGATIVE (NEGATIVE); BILIRUBIN, URINE AUTO NEGATIVE (NEGATIVE); BLOOD, URINE BLOOD NEGATIVE (NEGATIVE); COLOR, URINE YELLOW (YELLOW); GLUCOSE, URINE (UA) AUTO NEGATIVE (NEGATIVE); KETONE, URINE AUTO 1+ mg/dL (NEGATIVE); LEUKOCYTE ESTERASE, URINE AUTO NEGATIVE (NEGATIVE); MUCUS, URINE SMALL (NEGATIVE); NITRITE, URINE AUTO NEGATIVE (NEGATIVE); PROTEIN, URINE AUTO NEGATIVE (NEGATIVE); RBC, URINE AUTO 1 /HPF (0-3); SPECIFIC GRAVITY URINE AUTO 1.016 (1.002-1.035); SQUAMOUS EPITHELIAL CELL UR AU 1 /HPF (0-6); WBC, URINE AUTO 2 /HPF (0-3)
[2021-06-23] MEDS: IPRATROPIUM 0.5MG/ALBUTEROL 2.5MG INH SOL UD 3ML (DUONEB) NEB SCH ×2 (03:14→09:24)
[2021-06-23] MEDS ORDERED: IBUPROFEN 800 MG TAB PO PRN (05:10)
[2021-06-23] MEDS: NS 1,000 ML IV SCH (05:36)
[2021-06-23 08:15] LABS: BLOOD UREA NITROGEN 11 MG/DL (7-18); CALCIUM LEVEL 8.1 MG/DL (8.5-10.1); CARBON DIOXIDE LEVEL 25 MEQ/L (21-32); CHLORIDE LEVEL 110 MEQ/L (98-107); CREATININE FOR GFR 0.59 MG/DL (0.55-1.30); GLOMERULAR FILTRATION RATE > 60.0 (>58); GLUCOSE, FASTING 96 MG/DL (70-100); MAGNESIUM LEVEL 2.2 MG/DL (1.8-2.4); POTASSIUM SERUM 3.7 MEQ/L (3.5-5.1); SODIUM LEVEL 139 MEQ/L (136-145)
[2021-06-23 08:20] LABS: HEMATOCRIT 34.4 % (36.0-47.0); HEMOGLOBIN 11.3 g/dl (12.0-15.5); LYMPH # 0.8 10^3/uL (1.5-5.0); LYMPH % 12.6 % (24.0-44.0); MEAN CORPUSCULAR HEMOGLOBIN 30.3 pg (27.0-33.0); MEAN CORPUSCULAR HGB CONC 32.8 g/dl (32.0-36.5); MEAN CORPUSCULAR VOLUME 92.2 fl (80.0-96.0); MONO # 0.4 10^3/uL (0.0-0.8); MONO % 5.7 % (2.0-8.0); NEUTROPHILS % 81.2 % (36.0-66.0); PLATELET COUNT, AUTOMATED 181 10^3/uL (150-450); RED BLOOD COUNT 3.73 10^6/uL (4.00-5.40); WHITE BLOOD COUNT 6.2 10^3/uL (4.0-10.0)
[2021-06-23] MEDS: guaiFENesin ER 600 MG TAB PO SCH (10:52)
[2021-06-23] MEDS: dexameTHASONE 4 MG/ML 1ML VIAL (J1100 PER 1MG) IV SCH (10:52)
[2021-06-23] MEDS: ENOXAPARIN 100MG/1ML SYRINGE (J1650 PER 10MG) SC SCH (10:52)
--- NOTE | 2021-06-23 11:05 | IPNPDOC ---
Text Note Date of Service The patient was seen on 06/23/21. NOTE Subjective: Patient is a 40-year-old female who was initially diagnosed with COVID-19 on 06/14/2021. Patient presented to the emergency department yesterday and was initially admitted for monoclonal antibody infusion however, after the infusion, patient was requiring oxygen therapy and had hypotension which she was having prior but was fixed with a small fluid bolus in the emergency department. The decision was made to admit the patient as she now met admission criteria w hich she did not meet prior to getting her antibody infusion as she was not hypoxic with exertion as her oxygen saturations did not fall below 90% while walking around the room. Patient is doing well on 3 L of oxygen today. Patient says she feels about the same as she did yesterday and it does hurt to breathe. Patient denies any other symptoms at this time. Review of systems: General: Patient denies fevers HEENT: Patient denies headaches Cardiovascular: Patient denies chest pain Respiratory: Patient reports shortness of breath and cough GI: Patient denies abdominal pain, nausea, vomiting, diarrhea : Patient denies increased frequency or pain with urination Extremities: Patient denies swelling or pain in extremities Neurological: Patient denies numbness or tingling in legs Physical exam: Vitals: See below General: Alert and oriented female patient who is laying in bed when I walked in. Patient had nasal cannula oxygen in place did not appear to be in acute distress. HEENT: Normocephalic, atraumatic, moist mucous membranes. Neck: No lymphadenopathy or thyromegaly Cardiac: Regular rate and rhythm, no murmurs, normal S1, normal S2 Pulm: Diminished breath sounds bilaterally Abd: Nondistended, nontender to palpation, normal bowel sounds Ext: No edema bilateral lower extremities Labs: See below Imaging: No new imaging has been performed Assessment/plan: 40-year-old female initially presented to the emergency department with increased shortness of breath he was Covid positive as of 06/14/2021 became symptomatic as of 06/16/2021 who was initially admitted for monoclonal antibodies who became hypoxic and was admitted for further management of COVID-19 1. Hypoxia secondary to COVID-19 infection. Patient is currently on 3 L and saturating well. We will attempt to wean this down. Patient was started on remdesivir and dexamethasone. Patient also received the monoclonal antibodies. We will continue to monitor the patient's oxygenation. I highly encouraged the patient to self prone as much as possible. Patient will attempt to do this. 2. COVID-19. Continue treatment as above. 3. Dehydration. Patient appears rehydrated and fluids have been stopped at thi s time. Encourage p.o. intake. Patient's blood pressure and tachycardia have resolved at this time. DVT Prophylaxis: Lovenox at prophylactic dose Disposition: Pending improvement in the patient's oxygenation. VS,Fishbone, I+O VS, Fishbone, I+O Laboratory Tests 06/23/21 07:33 Vital Signs Date Time Temp Pulse Resp B/P (MAP) Pulse Ox O2 Delivery O2 Flow Rate FiO2 06/23/21 10:30 97.0 06/23/21 08:00 96 Nasal Cannula 3.0 06/23/21 06:00 91 18 101/60 (74) I&O- Last 24 Hours up to 6 AM 06/23/21 06:00 Intake Total 1445 ml Balance 1445 ml CINDY ZAMBRANO DO Jun 23, 2021 11:05
[2021-06-23] MEDS ORDERED: BENZONATATE 100MG CAPSULE PO PRN (11:10)
[2021-06-23] MEDS: COMBIVENT RESPIMAT 100-20MCG INHALER 4GM INH SCH ×3 (13:18→20:01)
[2021-06-23] MEDS ORDERED: REMDESIVIR 100 MG in NS 250 ML IV SCH (23:00)
[2021-06-24] MEDS ORDERED: SODIUM CHLORIDE 0.9% INJ 10 ML SYR IV SCH
[2021-06-24 06:00] VITALS: BP 104/60
[2021-06-24] MEDS: COMBIVENT RESPIMAT 100-20MCG INHALER 4GM INH SCH (06:18)
[2021-06-24 06:25] LABS: HEMATOCRIT 38.3 % (36.0-47.0); HEMOGLOBIN 12.7 g/dl (12.0-15.5); MEAN CORPUSCULAR HGB CONC 33.2 g/dl (32.0-36.5); MEAN CORPUSCULAR VOLUME 90.3 fl (80.0-96.0); PLATELET COUNT, AUTOMATED 237 10^3/uL (150-450); RED BLOOD COUNT 4.24 10^6/uL (4.00-5.40); WHITE BLOOD COUNT 3.1 10^3/uL (4.0-10.0)
[2021-06-24 06:54] LABS: ALBUMIN 2.6 GM/DL (3.2-5.2); ALT/SGPT 28 U/L (12-78); BILIRUBIN,TOTAL 0.5 MG/DL (0.2-1.0); BLOOD UREA NITROGEN 11 MG/DL (7-18); CALCIUM LEVEL 8.8 MG/DL (8.5-10.1); CARBON DIOXIDE LEVEL 26 MEQ/L (21-32); CHLORIDE LEVEL 109 MEQ/L (98-107); CREATININE FOR GFR 0.56 MG/DL (0.55-1.30); GLOMERULAR FILTRATION RATE > 60.0 (>58); GLUCOSE, FASTING 161 MG/DL (70-100); POTASSIUM SERUM 3.8 MEQ/L (3.5-5.1); SODIUM LEVEL 142 MEQ/L (136-145); TOTAL PROTEIN 6.7 GM/DL (6.4-8.2)
[2021-06-24 07:20] LABS: ATYPICAL LYMPH 1 % (0-5); LYMPHOCYTES 8 % (16-44); MONOCYTES 8 % (0-5); NEUTROPHILS 78 % (28-66); PLATELET ESTIMATE NORMAL (NORMAL)
[2021-06-24 09:00] VITALS: O2SAT 96
[2021-06-24] MEDS ORDERED: ENOXAPARIN 40MG/0.4ML SYRINGE (J1650 PER 10MG) SC SCH (09:00)
[2021-06-24] MEDS: dexameTHASONE 4 MG/ML 1ML VIAL (J1100 PER 1MG) IV SCH (09:55)
[2021-06-24] MEDS ORDERED: PRED20TA PO (09:58)
--- NOTE | 2021-06-24 16:12 | DS.PDOC ---
Discharge Summary General Date of Admission Jun 22, 2021 at 23:20 Date of Discharge 06/24/2021 Specialist/Consultants Involve: CINDY ZAMBRANO DO Discharge Summary PROCEDURES PERFORMED DURING STAY: Monoclonal antibody infusion. ADMITTING DIAGNOSES: 1. COVID-19 2. Hypoxia 3. Dehydration. DISCHARGE DIAGNOSES: 1. Hypoxia due to COVID-19 infection, resolved. 2. COVID-19 3. Dehydration, resolved COMPLICATIONS/CHIEF COMPLAINT: Monoclonal Infusion. HISTORY OF PRESENT ILLNESS: Patient is a 40-year-old female who was initially diagnosed with COVID-19 on 06/14/2021. Patient initially presented to the emergency department on 06/18/2021 when she had increasing shortness of breath. Patient was offered monoclonal antibodies but declined at this time. Patient began to feel more short of breath especially with exertion today and said her pulse ox was low at home so she presented to the emergency department. In the emergency department, chest x-ray does show a mild worsening of patchy infiltrates as well as an oxygen saturation around 90 to 92%. Patient was ambulated around the room and did not drop so the decision was made to call for monoclonal antibodies. In speaking with the patient, she has been having some worsening shortness of breath over the past few days. Patient feels quite ill today. Patient is not been eating and drinking much today. Patient says that she feels very dry and her last urine was when she woke up this morning at 7 AM. Patient denies any chest pain. Patient has been coughing and says it is a dry cough but will occasionally get some clear-colored colored sputum but this is not the norm for her. Patient denies any other symptoms at this time. After the patient's monoclonal infusion was performed, patient became hypoxic requiring oxygen therapy. The decision was made to admit the patient to an inpatient bed for further monitoring and care. HOSPITAL COURSE: Patient required maximum of 3 L via nasal cannula while the patient was hospitalized. Patient was started on remdesivir and Decadron while she was inpatient. Patient was advised to prone as much as possible. Patient was seen on hospital day 2 and was still on oxygen. Patient was able to wean down throughout the day on 06/23/2021. Patient began feeling better and was on room air. Patient spent the night on room air and was doing well on the morning of 06/24/2021. The decision was made to discharge the patient home. Patient was discharged home on 06/24/2021. Patient was discharged home on prednisone for 4 days. Patient did not receive antibiotics as her procalcitonin was less than 0.05. DISCHARGE MEDICATIONS: Please see below. ALLERGIES: Please see below. PHYSICAL EXAMINATION ON DISCHARGE: VITAL SIGNS: Please see below. General: Alert and oriented female patient who was laying prone in the bed when I walked in the room. Patient did not appear to be in acute distress. HEENT: Normocephalic, atraumatic, moist mucous membranes. Neck: No lymphadenopathy or thyromegaly Cardiac: Regular rate and rhythm, no murmurs, normal S1, normal S2 Pulm: Clear to auscultation bilaterally. No wheezes, rhonchi, rales Abd: Nondistended, nontender to palpation, normal bowel sounds Ext: No edema bilateral lower extremities LABORATORY DATA: Please see below. IMAGING: Chest x-ray performed on 06/22/2021 was reported to show findings consistent with progressive pneumonia with increased bilateral patchy perihilar infiltrates. PROGNOSIS: Good ACTIVITY: As tolerated. DIET: Regular DISCHARGE PLAN: Discharge home DISPOSITION: 01-Home, self-care DISCHARGE INSTRUCTIONS: 1. Follow-up with your primary care provider within 3 to 5 days discharge. 2. Follow-up with [facility] for quarantine information. 3. Begin taking prednisone 40 mg daily for the next 4 days. 4. Return the emergency department if your symptoms worsen ITEMS TO FOLLOWUP ON ON OUTPATIENT: 1. Resolution of Covid pneumonia. DISCHARGE CONDITION: Stable. TIME SPENT ON DISCHARGE: 35 minutes. Vital Signs/I&Os Vital Signs Date Time Temp Pulse Resp B/P (MAP) Pulse Ox O2 Delivery O2 Flow Rate FiO2 06/24/21 09:00 96 Room Air 06/24/21 06:00 97.5 80 16 104/60 (75) 06/23/21 11:03 2.0 I&O- Last 24 Hours up to 6 AM 06/24/21 06:00 Intake Total 1145 ml Output Total 100 ml Balance 1045 ml Laboratory Data Labs 24H Laboratory Tests 2 06/24/21 05:43: Neutrophils (%) (Auto) , Nucleated Red Blood Cells % (auto) 0.0, Neutrophils 78H, Band Neutrophils 5, Lymphocytes (Manual) 8L, Monocytes (Manual) 8H, Atypical Lymphocytes 1, Red Blood Cell Morphology NORMAL, Platelet Estimate NORMAL, Anion Gap 7L, Glomerular Filtration Rate > 60.0, Calcium Level 8.8, Total Bilirubin 0.5, Aspartate Amino Transf (AST/SGOT) 25, Alanine Aminotransferase (ALT/SGPT) 28, Alkaline Phosphatase 44L, Total Protein 6.7, Albumin 2.6L, Albumin/Globulin Ratio 0.6L CBC/BMP Laboratory Tests 06/24/21 05:43 Microbiology Microbiology 06/22/21 Blood Culture - Preliminary, Resulted No growth after 24 hours . All specim... Discharge Medications Scheduled Benzonatate (Tessalon Perle) 100 Mg Capsule, 1 CAP PO TID for cough Ibuprofen (Ibuprofen) 800 Mg Tablet, 1 TAB PO TID for pain Multivitamin (Multivitamins) 1 Each Capsule, 1 CAP PO DAILY, (Reported) Ondansetron HCl (Zofran) 4 Mg Tablet, 4 MG PO Q6H Prednisone (Prednisone) 20 Mg Tablet, 40 MG PO DAILY Scheduled PRN Albuterol Sulfate (Ventolin Hfa) 18 Gm Hfa.aer.ad, 2 PUFF INH Q4-6HP PRN for wheezing Meclizine HCl (Meclizine HCl) 12.5 Mg Tablet, 12.5 MG PO DAILYPRN PRN for vertigo, (Reported) Allergies Coded Allergies: HAY FEVER (Verified Allergy, Unknown, 02/10/20) CINDY ZAMBRANO DO Jun 24, 2021 16:12
== END 2021-06-24 11:50 | disposition home or self-care (01) | DRG 137 ==
LOC: M OPCLI4PR 17:05 → M ICU 17:10 → M OPCLI4PR 22:55 → M 4MAIN 23:15 → M OPCLI4PR 23:19 → M 4MAIN 23:20
PROVIDERS: ADMIT Family Medicine; ATTEND Family Medicine
PROC: XW033E5 Introduction of Remdesivir Anti-infective into Peripheral Vein, Percutaneous Approach, New Technology Group 5 (ICD-10-PCS; principal; 2021-06-22)
PROC: 3E0333Z Introduction of Anti-inflammatory into Peripheral Vein, Percutaneous Approach (ICD-10-PCS; 2021-06-22)
DX: U07.1 COVID-19 (principal); E86.0 Dehydration; R09.02 Hypoxemia; J30.1 Allergic rhinitis due to pollen; Z79.899 Other long term (current) drug therapy

== ENCOUNTER → 2022-08-08 | Outpatient (REF) | payer OTHER ==
[~2022-08-08] MED LIST changes: -ALBUTEROL 90 MCG/ACT 8GM HFA INHALER INH PRN; -ALBUTEROL SULFATE 2.5 MG/0.5 ML INH NEB SOLN INH PRN; -EPINEPHrine INJ 1 MG/ML 1ML AMP IM PRN; -NS 1,000 ML IV SCH; -NS 500 ML IV ONE; +PRED20TA PO; -diphenhydrAMINE 50MG/ML VIAL (J1200) IV PRN; -methylPREDNISolone 125MG 2ML VIAL IV PRN
== END ==
LOC: M LAB REF 17:01
PROVIDERS: ATTEND Nurse Practitioner Family
DX: R39.9 Unspecified symptoms and signs involving the genitourinary system (principal)

== ENCOUNTER → 2022-09-14 | Outpatient (REF) | payer OTHER | LOC: M LAB REF 22:08 | PROVIDERS: ATTEND Physician Assistant | DX: R05.1 Acute cough (principal) ==

== ENCOUNTER → 2022-11-17 | Outpatient (REF) | payer OTHER ==
[~2022-11-17] MED LIST changes: +LIDO15SO4 MT; -LIDO2SOL17 MT
[2022-11-17 17:00] LABS: BASO # 0.1 10^3/uL (0.0-0.2); BASO % 0.6 % (0.0-1.0); EOS # 0.3 10^3/uL (0.0-0.5); EOS % 3.8 % (0.0-3.0); HEMATOCRIT 44.1 % (36.0-47.0); HEMOGLOBIN 14.2 g/dl (12.0-15.5); LYMPH # 2.1 10^3/uL (1.5-5.0); LYMPH % 24.2 % (24.0-44.0); MEAN CORPUSCULAR HEMOGLOBIN 30.2 pg (27.0-33.0); MEAN CORPUSCULAR HGB CONC 32.2 g/dl (32.0-36.5); MEAN CORPUSCULAR VOLUME 93.8 fl (80.0-96.0); MONO # 0.5 10^3/uL (0.0-0.8); MONO % 5.3 % (2.0-8.0); NEUTROPHILS # 5.7 10^3/uL (1.5-8.5); NEUTROPHILS % 65.6 % (36.0-66.0); PLATELET COUNT, AUTOMATED 319 10^3/uL (150-450); WHITE BLOOD COUNT 8.7 10^3/uL (4.0-10.0)
[2022-11-17 17:04] LABS: ALBUMIN 3.6 G/DL (3.2-5.2); ALKALINE PHOSPHATASE 84 U/L (46-116); ALT/SGPT 24 U/L (7.0-40); AST/SGOT 18 U/L (<34); BILIRUBIN,TOTAL 1.4 MG/DL (0.3-1.2); BLOOD UREA NITROGEN 12 MG/DL (9-23); CALCIUM LEVEL 9.2 MG/DL (8.5-10.1); CARBON DIOXIDE LEVEL 28 MMOL/L (20-31); CHLORIDE LEVEL 103 MMOL/L (98-107); CHOLESTEROL LEVEL 177 MG/DL (<200); CHOLESTEROL RISK RATIO 3.24 (<5); CREATININE FOR GFR 0.69 MG/DL (0.55-1.30); GLOMERULAR FILTRATION RATE > 60.0 (>58); GLUCOSE, FASTING 112 MG/DL (60-100); HDL CHOLESTEROL 54.5 MG/DL (>40); LDL CHOLESTEROL 106.7 MG/DL (<100); NON-HDL-C 123 MG/DL; POTASSIUM SERUM 4.7 MMOL/L (3.5-5.1); SODIUM LEVEL 139 MMOL/L (136-145); THYROID STIMULATING HORMONE 1.361 uIU/ML (0.55-4.78); TOTAL 25(OH) VITAMIN D 16.8 NG/ML (20.0-100.0); TOTAL PROTEIN 6.6 G/DL (5.7-8.2); TRIGLYCERIDES LEVEL 79 MG/DL (<150)
[2022-11-17 18:06] LABS: HEMOGLOBIN A1c 5.6 % (4.0-6.0)
== END ==
LOC: M LAB REF 16:14
PROVIDERS: ATTEND Nurse Practitioner Family
DX: Z13.228 Encounter for screening for other metabolic disorders (principal)

== ENCOUNTER → 2022-12-19 | Outpatient (CLI) | payer OTHER | LOC: M WHC 13:37 | PROVIDERS: ATTEND Nurse Practitioner Family | DX: Z12.31 Encounter for screening mammogram for malignant neoplasm of breast (principal) ==

== ENCOUNTER → 2024-02-08 | Outpatient (REF) | payer OTHER ==
[~2024-02-08] MED LIST changes: -LIDO15SO4 MT; +LIDO15SO8 MT; +MECL-209 PO; -MECL1TAB31 PO; -PSEU30TA86 PO; +PSEU30TA87 PO
[2024-02-08 13:53] LABS: BASO # 0.1 10^3/uL (0.0-0.2); BASO % 0.6 % (0.0-1.0); EOS # 0.3 10^3/uL (0.0-0.5); EOS % 3.2 % (0.0-3.0); HEMATOCRIT 43.7 % (36.0-47.0); HEMOGLOBIN 13.9 g/dl (12.0-15.5); LYMPH % 24.1 % (24.0-44.0); MEAN CORPUSCULAR HEMOGLOBIN 30.1 pg (27.0-33.0); MEAN CORPUSCULAR HGB CONC 31.8 g/dl (32.0-36.5); MEAN CORPUSCULAR VOLUME 94.6 fl (80.0-96.0); MONO # 0.5 10^3/uL (0.0-0.8); MONO % 5.8 % (2.0-8.0); NEUTROPHILS # 5.4 10^3/uL (1.5-8.5); NEUTROPHILS % 66.1 % (36.0-66.0); PLATELET COUNT, AUTOMATED 329 10^3/uL (150-450); RED BLOOD COUNT 4.62 10^6/uL (4.00-5.40); WHITE BLOOD COUNT 8.2 10^3/uL (4.0-10.0)
[2024-02-08 14:21] LABS: ALBUMIN 3.5 G/DL (3.2-5.2); ALKALINE PHOSPHATASE 81 U/L (46-116); ALT/SGPT 25 U/L (7.0-40); AST/SGOT 11 U/L (<34); BILIRUBIN,TOTAL 0.8 MG/DL (0.3-1.2); BLOOD UREA NITROGEN 13 MG/DL (9-23); CALCIUM LEVEL 9.1 MG/DL (8.5-10.1); CARBON DIOXIDE LEVEL 28 MMOL/L (20-31); CHLORIDE LEVEL 108 MMOL/L (98-107); CHOLESTEROL LEVEL 189 MG/DL (<200); CHOLESTEROL RISK RATIO 3.92 (<5); GLOMERULAR FILTRATION RATE > 60.0 (>58); GLUCOSE, FASTING 119 MG/DL (60-100); HDL CHOLESTEROL 48.1 MG/DL (>40); LDL CHOLESTEROL 125.7 MG/DL (<100); MAGNESIUM LEVEL 2.1 MG/DL (1.8-2.4); NON-HDL-C 140.9 MG/DL; POTASSIUM SERUM 4.4 MMOL/L (3.5-5.1); SODIUM LEVEL 142 MMOL/L (136-145); TOTAL PROTEIN 6.8 G/DL (5.7-8.2); TRIGLYCERIDES LEVEL 76 MG/DL (<150)
[2024-02-08 14:22] LABS: HEMOGLOBIN A1c 5.2 % (4.0-6.0); THYROID STIMULATING HORMONE 2.316 uIU/ML (0.55-4.78); TOTAL 25(OH) VITAMIN D 15.9 NG/ML (20.0-100.0)
== END ==
LOC: M LAB REF 12:26
PROVIDERS: ATTEND Nurse Practitioner Family
DX: E66.01 Morbid (severe) obesity due to excess calories (principal); E55.9 Vitamin D deficiency, unspecified

== ENCOUNTER → 2024-02-15 | Outpatient (REF) | payer OTHER | LOC: M LAB REF 12:15 | PROVIDERS: ATTEND Nurse Practitioner Family | DX: J02.9 Acute pharyngitis, unspecified (principal) ==

== ENCOUNTER 2024-06-29 15:25 | Emergency (ER) | payer OTHER ==
[~2024-06-29] VITALS: Ht 162.6 cm; Wt 115.9 kg
[2024-06-29 15:37] VITALS: BP 137/84; TEMP 98; O2SAT 97
[2024-06-29] MEDS ORDERED: ZITHTAB PO (17:49)
[2024-06-29] MEDS ORDERED: FLON1SPR NARES (17:50)
[2024-06-29] MEDS ORDERED: DIFL200T PO (17:52)
[2024-06-29] MEDS ORDERED: FLUCONAZOLE 100 MG TAB PO ONE (19:00)
== END 2024-06-29 18:01 | disposition home or self-care (01) ==
LOC: M ED 15:25
DX: B37.31 Acute candidiasis of vulva and vagina (principal); J32.9 Chronic sinusitis, unspecified; Z79.52 Long term (current) use of systemic steroids; Z79.2 Long term (current) use of antibiotics; Z79.899 Other long term (current) drug therapy; Z91.048 Other nonmedicinal substance allergy status

== ENCOUNTER 2024-08-15 16:50 | Emergency (ER) | payer OTHER, SELFPAY ==
[~2024-08-15] VITALS: Ht 162.6 cm; Wt 117.6 kg
[~2024-08-15 16:50] MED LIST changes: +ZITHTAB PO
[2024-08-15 17:49] LABS: BASO % 0.4 % (0.0-1.0); EOS # 0.3 10^3/uL (0.0-0.5); EOS % 2.4 % (0.0-3.0); HEMATOCRIT 41.9 % (36.0-47.0); HEMOGLOBIN 13.8 g/dl (12.0-15.5); LYMPH # 2.2 10^3/uL (1.5-5.0); LYMPH % 21.5 % (24.0-44.0); MEAN CORPUSCULAR HEMOGLOBIN 30.5 pg (27.0-33.0); MEAN CORPUSCULAR HGB CONC 32.9 g/dl (32.0-36.5); MEAN CORPUSCULAR VOLUME 92.7 fl (80.0-96.0); MONO # 0.5 10^3/uL (0.0-0.8); MONO % 4.4 % (2.0-8.0); NEUTROPHILS # 7.2 10^3/uL (1.5-8.5); NEUTROPHILS % 70.9 % (36.0-66.0); PLATELET COUNT, AUTOMATED 320 10^3/uL (150-450); RED BLOOD COUNT 4.52 10^6/uL (4.00-5.40); WHITE BLOOD COUNT 10.2 10^3/uL (4.0-10.0)
[2024-08-15 18:06] LABS: HCG, SERUM QUALITATIVE NEGATIVE (NEGATIVE)
[2024-08-15 18:07] LABS: BLOOD UREA NITROGEN 15 MG/DL (9-23); CALCIUM LEVEL 9.8 MG/DL (8.5-10.1); CARBON DIOXIDE LEVEL 26 MMOL/L (20-31); CHLORIDE LEVEL 106 MMOL/L (98-107); CREATININE FOR GFR 0.69 MG/DL (0.55-1.30); GLOMERULAR FILTRATION RATE > 60.0 (>58); GLUCOSE, FASTING 163 MG/DL (60-100); POTASSIUM SERUM 3.9 MMOL/L (3.5-5.1); SODIUM LEVEL 139 MMOL/L (136-145)
[2024-08-15] MEDS ORDERED: ISOVUE-370 76% 100ML VIAL As Ordered ONE (19:52)
[2024-08-15 21:06] VITALS: TEMP 97.7
[2024-08-15 21:10] LABS: Trichomonas vaginalis (AMP) NOT DETECTED (NEGATIVE)
[2024-08-15 21:34] LABS: GC DNA AMPLIFICATION NEGATIVE (NEGATIVE)
[2024-08-15] MEDS: KETOROLAC 30 MG/ML 1ML VIAL IV ONE (22:30)
[2024-08-15] MEDS ORDERED: KETO10TAB PO (22:50)
[2024-08-15] MEDS ORDERED: FLOM0.4C39 PO (22:50)
[2024-08-15 22:55] VITALS: BP 130/80; O2SAT 96
== END 2024-08-15 23:21 | disposition home or self-care (01) ==
LOC: M ED 16:50
DX: N20.0 Calculus of kidney (principal); R91.1 Solitary pulmonary nodule; R51.9 Headache, unspecified; H81.4 Vertigo of central origin; Z87.442 Personal history of urinary calculi; Z79.52 Long term (current) use of systemic steroids; Z79.2 Long term (current) use of antibiotics; Z79.899 Other long term (current) drug therapy; Z91.048 Other nonmedicinal substance allergy status
CPT/HCPCS: 74177; 80048; 81001; 84703; 85025; 87210; 87661; 87810; 87850; 96374; 99284; J1885; Q9967

== ENCOUNTER 2025-02-16 15:33 | Emergency (ER) | payer SELFPAY ==
[~2025-02-16] VITALS: Ht 162.6 cm; Wt 117.4 kg
[~2025-02-16 15:33] MED LIST changes: +KETO10TAB PO; +TAMS-18 PO
[2025-02-16 17:34] LABS: BASO # 0.1 10^3/uL (0.0-0.2); BASO % 0.5 % (0.0-1.0); EOS # 0.2 10^3/uL (0.0-0.5); EOS % 2.3 % (0.0-3.0); HEMATOCRIT 38.2 % (36.0-47.0); HEMOGLOBIN 12.5 g/dl (12.0-15.5); LYMPH # 1.8 10^3/uL (1.5-5.0); LYMPH % 16.5 % (24.0-44.0); MEAN CORPUSCULAR HEMOGLOBIN 30.9 pg (27.0-33.0); MEAN CORPUSCULAR HGB CONC 32.7 g/dl (32.0-36.5); MEAN CORPUSCULAR VOLUME 94.3 fl (80.0-96.0); MONO # 0.7 10^3/uL (0.0-0.8); MONO % 6.3 % (2.0-8.0); NEUTROPHILS # 7.9 10^3/uL (1.5-8.5); PLATELET COUNT, AUTOMATED 251 10^3/uL (150-450); RED BLOOD COUNT 4.05 10^6/uL (4.00-5.40); WHITE BLOOD COUNT 10.6 10^3/uL (4.0-10.0)
[2025-02-16 18:03] LABS: ALBUMIN 3.4 G/DL (3.2-5.2); ALKALINE PHOSPHATASE 76 U/L (35-104); ALT/SGPT 15 U/L (7.0-40); AST/SGOT 9 U/L (<34); BILIRUBIN,DIRECT 0.3 MG/DL (<0.4); BILIRUBIN,TOTAL 1.1 MG/DL (0.3-1.2); BLOOD UREA NITROGEN 12 MG/DL (9-23); CALCIUM LEVEL 8.7 MG/DL (8.5-10.1); CARBON DIOXIDE LEVEL 28 MMOL/L (20-31); CHLORIDE LEVEL 105 MMOL/L (98-107); CK-MB VALUE MASS < 1.0 NG/ML (<3.6); CPK CREATINE PHOSPHOKINASE 56 U/L (34-145); GLOMERULAR FILTRATION RATE > 90.0 (>58); GLUCOSE, FASTING 129 MG/DL (60-100); MB/CK RELATIVE INDEX 1.78 (< OR =4); POTASSIUM SERUM 3.9 MMOL/L (3.5-5.1); SODIUM LEVEL 141 MMOL/L (136-145); TOTAL PROTEIN 6.3 G/DL (5.7-8.2)
[2025-02-16 19:37] VITALS: BP 150/99; TEMP 97.5; O2SAT 98
== END 2025-02-16 19:45 | disposition home or self-care (01) ==
LOC: M ED 15:33
DX: J02.9 Acute pharyngitis, unspecified (principal); F41.1 Generalized anxiety disorder

== ENCOUNTER 2025-07-16 13:13 | Emergency (ER) | payer OTHER ==
[~2025-07-16] VITALS: Ht 162.6 cm; Wt 112.2 kg
[~2025-07-16 13:13] MED LIST changes: +ALBU8.5H INH
[2025-07-16 13:24] VITALS: TEMP 96.7
[2025-07-16 16:32] VITALS: BP 154/88; O2SAT 100
== END 2025-07-16 16:35 | disposition home or self-care (01) ==
LOC: M ED 13:13
DX: S50.02XA Contusion of left elbow, initial encounter (principal); S00.93XA Contusion of unspecified part of head, initial encounter; W10.8XXA Fall (on) (from) other stairs and steps, initial encounter; M50.30 Other cervical disc degeneration, unspecified cervical region; M50.20 Other cervical disc displacement, unspecified cervical region; M25.78 Osteophyte, vertebrae; Y92.009 Unspecified place in unspecified non-institutional (private) residence as the place of occurrence of the external cause; Y93.89 Activity, other specified; Y99.9 Unspecified external cause status; Z79.52 Long term (current) use of systemic steroids; Z79.1 Long term (current) use of non-steroidal anti-inflammatories (NSAID); Z79.899 Other long term (current) drug therapy

== ENCOUNTER 2025-07-31 09:48 | Emergency (ER) | payer OTHER ==
[~2025-07-31] VITALS: Ht 162.6 cm; Wt 112.6 kg
[2025-07-31 09:50] VITALS: BP 138/83; TEMP 96.5; O2SAT 97
== END 2025-07-31 11:51 | disposition left against medical advice (07) ==
LOC: M ED 09:48
DX: Z53.21 Procedure and treatment not carried out due to patient leaving prior to being seen by health care provider (principal)